=== PATIENT | male | born 1945 | race Caucasian/White ===

== ENCOUNTER → 2017-07-21 | Outpatient (CLI) | payer OTHER ==
[2017-07-21 13:05] LABS: ALT/SGPT 40 U/L (12-78); AST/SGOT 30 U/L (15-37); BLOOD UREA NITROGEN 20 mg/dl (7-18); BUN/CREATININE RATIO 11.3 (10-20); CALCIUM 9.6 mg/dl (8.5-10.1); CARBON DIOXIDE 21 mmol/L (21-32); CHLORIDE 107 mmol/L (98-107); CREATININE 1.74 mg/dl (0.60-1.40); GLUCOSE 165 mg/dl (70-99); POTASSIUM 4.3 mmol/L (3.5-5.1); SODIUM 140 mmol/L (136-145)
[2017-07-21 13:08] LABS: ALKALINE PHOSPHATASE 77 U/L (45-117)
[2017-07-21 13:18] LABS: BASO % 0.6 %; BASO ABS # 0.05 K/uL (0-0.2); COMPLETE YES; EOS % 3.1 %; HEMATOCRIT 37.3 % (42-52); IG% 0.3 %; LYMPH % 30.8 %; LYMPH ABS # 2.46 K/uL (1.2-3.4); MEAN CELL VOLUME 92.6 fL (80-100); MEAN CORPUSCULAR HEMOGLOBIN 30.5 pg (25-34); MEAN PLATELET VOLUME 11.8 fL (7.4-10.4); MONO % 9.3 %; NEUT % 55.9 %; PLATELET COUNT 186 K/uL (130-400); RED BLOOD COUNT 4.03 M/uL (4.7-6.1); WHITE BLOOD COUNT 7.99 K/uL (4.8-10.8)
[2017-07-21 13:32] LABS: CHOLESTEROL/HDL RATIO 2.8; THYROID STIMULATING HORMONE 2.95 uIu/ml (0.300-4.500)
[2017-07-21 14:07] LABS: ESTIMATED AVERAGE GLUCOSE 166 mg/dl; HA1C FLAG Normal (Normal)
== END | disposition home or self-care (01) ==
LOC: C.LABMFLN 08:39
PROVIDERS: ATTEND Physician Assistant
DX: E11.9 Type 2 diabetes mellitus without complications (principal); E78.5 Hyperlipidemia, unspecified; I10 Essential (primary) hypertension

== ENCOUNTER → 2017-11-18 | Outpatient (CLI) | payer OTHER ==
[2017-11-18 13:08] LABS: HEMOGLOBIN A1C 11.9 % (4.5-5.6)
[2017-11-18 13:26] LABS: ALBUMIN 3.3 gm/dl (3.4-5.0); ALT/SGPT 39 U/L (12-78); BLOOD UREA NITROGEN 33 mg/dl (7-18); CALCIUM 9.5 mg/dl (8.5-10.1); CARBON DIOXIDE 21 mmol/L (21-32); CHOLESTEROL 108 mg/dl (0-200); CREATININE 2.05 mg/dl (0.60-1.40); GLUCOSE 220 mg/dl (70-99); POTASSIUM 4.3 mmol/L (3.5-5.1); SODIUM 136 mmol/L (136-145)
[2017-11-18 13:29] LABS: ALKALINE PHOSPHATASE 111 U/L (45-117); AST/SGOT 24 U/L (15-37); LDL CHOLESTEROL CALCULATED 43 mg/dl; TOTAL PROTEIN 7.3 gm/dl (6.4-8.2)
== END | disposition home or self-care (01) ==
LOC: C.LABMFLN 08:48
PROVIDERS: ATTEND Family Medicine
DX: E11.9 Type 2 diabetes mellitus without complications (principal); E78.5 Hyperlipidemia, unspecified; I10 Essential (primary) hypertension

== ENCOUNTER → 2018-01-29 | Outpatient (CLI) | payer OTHER ==
[2018-01-29 17:57] LABS: HEMATOCRIT 40.6 % (42-52); HEMOGLOBIN 13.2 g/dL (14.0-18.0); MEAN CELL VOLUME 89.6 fL (80-100); MEAN CORPUSCULAR HEMOGLOBIN 29.1 pg (25-34); MEAN CORPUSCULAR HGB CONC 32.5 g/dl (32-36); MEAN PLATELET VOLUME 11.7 fL (7.4-10.4); PLATELET COUNT 217 K/uL (130-400); RED CELL DISTRIBUTION WIDTH CV 13.5 % (11.5-14.5); RED CELL DISTRIBUTION WIDTH SD 44.2 fL (36.4-46.3); WHITE BLOOD COUNT 8.09 K/uL (4.8-10.8)
[2018-01-29 18:12] LABS: ALBUMIN 3.5 gm/dl (3.4-5.0); BLOOD UREA NITROGEN 31 mg/dl (7-18); CARBON DIOXIDE 26 mmol/L (21-32); CREATININE 1.88 mg/dl (0.60-1.40); GLUCOSE 106 mg/dl (70-99); PHOSPHORUS 4.9 mg/dl (2.5-4.9); POTASSIUM 4.2 mmol/L (3.5-5.1); SODIUM 140 mmol/L (136-145)
== END | disposition home or self-care (01) ==
LOC: C.LABMFLN 15:15
PROVIDERS: ATTEND Internal Medicine Nephrology
DX: N17.9 Acute kidney failure, unspecified (principal); E11.29 Type 2 diabetes mellitus with other diabetic kidney complication

== ENCOUNTER → 2018-02-04 | Outpatient (CLI) | payer OTHER ==
--- NOTE | 2018-02-04 14:44 | DIAGNOSTIC IMAGING REPORT ---
ADDENDUM 1. Incidental note is made of a potential 3 x 2.5 cm pancreatic head lesion. 2. There is also a complex 8 x 5 cm complex lesion of the spleen, with the possibility of an additional similar but smaller lesion posteriorly measuring 2.5 cm. 3. A multi phase CT evaluation of the abdomen/pelvis is suggested as follow-up. Electronically signed by: Forrest Hagen M.D. 02/04/2018 2:58 PM Dictated Date/Time: 02/04/2018 2:56 PM ORIGINAL REPORT (RENAL)RETROPERITON COMP HISTORY: Renal insufficiency N17.9 ROMMEL (acute kidney injury)[id number] COMPARISON: None. FINDINGS: Right kidney: Maximum dimension 10.6 cm. No evidence for hydronephrosis. 1 cm mid pole cyst. Mild renal cortical scarring. Normal corticomedullary differentiation and cortical thickness. Left kidney: Maximum dimension 11.6 cm. 1.5 cm exophytic cyst. No evidence for hydronephrosis. Mild cortical scarring. Normal corticomedullary differentiation and cortical thickness. Bladder: No bladder wall thickening. The bilateral ureteral jets were identified. IMPRESSION: 1. No evidence for hydronephrosis. 2. Small bilateral renal cysts. 3. Mild bilateral renal cortical scarring. The above report was generated using voice recognition software. It may contain grammatical, syntax or spelling errors. Electronically signed by: Forrest Hagen M.D. 02/04/2018 2:43 PM Dictated Date/Time: 02/04/2018 2:42 PM
== END | disposition home or self-care (01) ==
LOC: C.ULTR 13:52
PROVIDERS: ATTEND Internal Medicine Nephrology
DX: N17.9 Acute kidney failure, unspecified (principal)

== ENCOUNTER → 2018-05-03 | Outpatient (CLI) | payer OTHER ==
[~2018-05-03] MED LIST: ASPI81TA28 PO; ATR25 PO; ECRCR EXT; ERGO500037 PO; INSU1INJ32 SC; NVLGI/PEN SC; ROSU20TA PO; TERA5CAP PO
[2018-05-03 13:16] LABS: BASO % 0.8 %; BASO ABS # 0.07 K/uL (0-0.2); EOS ABS # 0.18 K/uL (0-0.5); HEMATOCRIT 40.8 % (42-52); HEMOGLOBIN 13.6 g/dL (14.0-18.0); IG# 0.04 K/uL (0.00-0.02); LYMPH ABS # 1.63 K/uL (1.2-3.4); MEAN CELL VOLUME 87.7 fL (80-100); MEAN CORPUSCULAR HEMOGLOBIN 29.2 pg (25-34); MEAN CORPUSCULAR HGB CONC 33.3 g/dl (32-36); MEAN PLATELET VOLUME 11.4 fL (7.4-10.4); MONO ABS # 0.82 K/uL (0.11-0.59); NEUT % 69.8 %; NEUT ABS # 6.34 K/uL (1.4-6.5); PLATELET COUNT 205 K/uL (130-400); RED CELL DISTRIBUTION WIDTH CV 14.4 % (11.5-14.5); RED CELL DISTRIBUTION WIDTH SD 46.5 fL (36.4-46.3); WHITE BLOOD COUNT 9.08 K/uL (4.8-10.8)
[2018-05-03 13:18] LABS: ALBUMIN 3.6 gm/dl (3.4-5.0); ALKALINE PHOSPHATASE 118 U/L (45-117); ALT/SGPT 33 U/L (12-78); AST/SGOT 42 U/L (15-37); BLOOD UREA NITROGEN 30 mg/dl (7-18); CALCIUM 10.8 mg/dl (8.5-10.1); CARBON DIOXIDE 25 mmol/L (21-32); CREATININE 1.98 mg/dl (0.60-1.40); GLUCOSE 194 mg/dl (70-99); POTASSIUM 3.8 mmol/L (3.5-5.1); SODIUM 137 mmol/L (136-145); TOTAL PROTEIN 7.6 gm/dl (6.4-8.2)
== END | disposition home or self-care (01) ==
LOC: C.LABMFLN 09:29
PROVIDERS: ATTEND Internal Medicine Hematology & Oncology
DX: C83.33 Diffuse large B-cell lymphoma, intra-abdominal lymph nodes (principal)

== ENCOUNTER → 2018-05-12 | Day surgery (SDC) | payer OTHER ==
[2018-05-07 15:31] VITALS: BMI 31.0
[~2018-05-12] VITALS: Ht 182.9 cm; Wt 104.5 kg
[~2018-05-12] MED LIST changes: +ATROPINE SULFATE 0.1 MG/ML 5ML SYR IV PRN; +BUPIVACAINE 0.5 % 5 MG/1 ML PF 10ML VIAL ONE; +CEFAZOLIN 2000MG IV PUSH 15 ML IV SCH; -ERGO500037 PO; +EpHEDrine SULFATE INJ 50 MG/ML AMP IV PRN; +FENTANYL CITRATE INJ 50 MCG/1 ML 2 ML VIAL ONE; +HEPARIN SOD (PORCINE) 1000 UNIT/ML 10 ML VIAL ONE; +LIDOCAINE HCL 2% 2 ML VIAL (20MG/ML) ONE; +LIDOCAINE/EPINEPHRINE 1% 20 ML VIAL ONE; +MIDAZOLAM HCL 1 MG/ML 2ML VIAL ONE; +ONDANSETRON INJ 2 MG/ML 2 ML VIAL IV PRN; +OXYCODONE/ACETAMINOPHEN 5-325 TAB PO PRN; +PROPOFOL IV EMULSION 10 MG/ML 20 ML VIAL ONE; +SODIUM CHLORIDE 0.9% 1000ML 1,000 ML IV SCH
[2018-05-12 05:39] VITALS: BP 165/79; PULSE 82; TEMP 36.7; O2SAT 97; Ht 182.9 cm; Wt 104.5 kg
--- NOTE | 2018-05-12 06:58 | History & Physical Bridge Note ---
H&P Re-Evaluation Bridge Note: I have examined the patient, reviewed the History & Physical and in the interval since the performance of the History & Physical I have noted the following changes of clinical significance: No changes noted
--- NOTE | 2018-05-12 08:02 | [facility] Post Operative Brief Note ---
Immediate Operative Summary Operative Date May 12, 2018. Pre-Operative Diagnosis Non-Hodgkin's Lymphoma, need for chemo Post-Operative Diagnosis Same as preoperative Procedure(s) Performed Insertion of Mediport with Fluoroscopy, Left Internal Jugular vein Surgeon Dr. Soto Women Specialist Surgeon(s) Kanwal Veliz PA-C Estimated Blood Loss 4ml Findings Consistent with Post-Op Diagnosis Left IJV port placement with US guidance and fluoroscopy Specimens None Drains None Anesthesia Type MAC Complication(s) none Disposition Accompanied Pt To Recover: no Disposition: Recovery Room / PACU
--- NOTE | 2018-05-12 08:03 | [facility] Operative Report ---
Operative Report Operative Date May 12, 2018. Pre-Operative Diagnosis Non-Hodgkin's Lymphoma, need for chemo Post-Operative Diagnosis Same Procedure(s) Performed Left internal jugular vein port placement using real-time ultrasound guidance and fluoroscopy Surgeon Dr. Soto Fur Dressing Supervisor Surgeon(s) Kanwal Veliz PA-C Estimated Blood Loss 4ml Findings Left internal jugular vein accessed using real-time ultrasound guidance. Fluoroscopy confirmed placement of port in SVC. Draws and flushes easily at conclusion of case. Specimens None Drains None Anesthesia MAC/local Complication(s) None Disposition Recovery Room / PACU Indications 72-year-old male with non-Hodgkin's lymphoma and need for long-term IV access for chemotherapy, plan for port placement. The risks of the procedure were discussed, all questions were answered, and the patient agreed to proceed with surgery as planned. Description of Procedure The patient was properly identified, consented, and taken to the operating room where he was placed in the supine position with both arms tucked and a shoulder roll placed vertically. Monitored anesthesia care was induced. SCDs and a safety belt were placed. Preoperative antibiotics were administered. The patient's chest and neck was prepped and draped in the standard sterile fashion. Surgical timeout was performed and all parties were in agreement that this was the correct patient and procedure to be performed and we continued as planned. The patient was placed in Trendelenburg position. Local anesthetic was injected along the skin incision. Using real-time ultrasound guidance the left internal jugular vein was accessed using the access needle. The wire was placed and the needle was removed. Fluoroscopy confirmed placement into the internal jugular vein extending into the superior vena cava. A transverse skin incision was made in the left chest and a pocket was created for the port. A subcutaneous tunnel was created and the catheter was brought from the neck incision into the chest incision. The dilator and peel-away sheath were inserted over the wire. The catheter was then inserted through the peel-away sheath and fluoroscopy confirmed placement into the superior vena cava. The catheter was cut and attached to the port. The port was secured into place with 3-0 Prolene sutures. A final x-ray revealed good placement of the port. The wound was irrigated and hemostasis was confirmed. The skin was closed with interrupted 3-0 Vicryl deep dermal sutures, followed by 4-0 Monocryl running subcuticular suture. Dermabond was placed over the wound. The port was accessed and leelee blood easily and flushed easily. It was flushed with heparinized saline. The patient taken to the PACU where he recovered without apparent incident. All sponge, instrument and needle counts were correct at the conclusion of the procedure. The patient tolerated the procedure well. The physician's escrow assistant was present and scrubbed for the entirety of the case , and was essential in positioning the patient, prepping and draping, retraction and exposure, placement of the port, closure of the wounds, and placement of dressings. I attest to the content of the Intraoperative Record and any orders documented therein. Any exceptions are noted below.
--- NOTE | 2018-05-12 08:19 | Discharge Instructions ---
Discharge Instructions Date of Service May 12, 2018. Admission Reason for Admission: Non-Hodgkkin's Lymphoma, Diabetes Discharge Discharge Diagnosis / Problem: Non-Hodgkin's Lymphoma, Diabetes Discharge Goals Goal(s): Decrease discomfort, Improve function Activity Recommendations Activity Limitations: as noted below Lifting Limitations: gradually increase as tolerated Exercise/Sports Limitations: gradually increase as tolerated May Resume Sexual Activity: when tolerated Shower/Bathe: tomorrow Driving or Machine Use: resume 1 day after discharge . Instructions / Follow-Up Instructions / Follow-Up Your port is ready for access now. You have surgical glue, Dermabond, over your incisions. You may shower tomorrow , but please do not soak or scrub your incisions. For pain you can take Tylenol- 2 regular strength Tylenol every 4-6 hrs as needed. Do not exceed more than 10 tablets in a 24 hr period. Please follow-up with Dr. Soto in the [facility] in 1-2 weeks for incision check. Please call the General Surgery Clinic at [phone] with any questions or concerns. Current Hospital Diet Patient's current hospital diet: Discharge Diet Recommended Diet: Regular Diet Procedures Procedures Performed: Insertion of Mediport with Fluoroscopy, Left Internal Jugular vein Pending Studies Studies pending at discharge: no Medical Emergencies . Who to Call and When: Medical Emergencies: If at any time you feel your situation is an emergency, please call 911 immediately. . Non-Emergent Contact Non-Emergency issues call your: Primary Care Provider, Surgeon Call Non-Emergent contact if: temperature is above 101.5, your pain is not controlled, wound has increased drainage, wound has increased redness . "Provider Documentation" section prepared by Kanwal Veliz. .
--- NOTE | 2018-05-12 08:38 | Anesthesiology Progress Note ---
Anesthesia Post Op Note Date & Time May 12, 2018 at 08:37 Vital Signs Pain Intensity: 0 Vital Signs Past 12 Hours Date Time Temp Pulse Resp B/P (MAP) Pulse Ox O2 Delivery O2 Flow Rate FiO2 05/12/18 08:31 142/77 05/12/18 08:29 135/63 05/12/18 08:28 76 15 05/12/18 08:28 76 15 96 05/12/18 08:27 176/47 05/12/18 08:23 77 17 05/12/18 08:23 84 17 90 05/12/18 08:21 150/82 05/12/18 08:18 73 21 05/12/18 08:18 73 21 97 05/12/18 08:16 151/86 05/12/18 08:13 74 05/12/18 08:13 36.0 74 18 154/88 97 Oxymask 10 05/12/18 08:13 74 154/88 94 05/12/18 05:39 36.7 82 18 165/79 (107) 97 Room Air Notes Mental Status: alert / awake / arousable, participated in evaluation Pt Amnestic to Procedure: Yes Nausea / Vomiting: adequately controlled Pain: adequately controlled Airway Patency, RR, SpO2: stable & adequate BP & HR: stable & adequate Hydration State: stable & adequate Anesthetic Complications: no major complications apparent
--- NOTE | 2018-05-12 08:38 | DIAGNOSTIC IMAGING REPORT ---
CHEST ONE VIEW PORTABLE HISTORY: s/p Port placement, Pt in PACU COMPARISON: Chest 03/22/2018. FINDINGS: Interval placement of a left sided Port-A-Cath with the tip terminating in the expected location of the distal SVC. No pneumothorax. Trace left pleural effusion, unchanged. The heart remains mildly enlarged. There are low lung volumes. No new focal lung consolidations to suggest pneumonia. No evidence for pulmonary edema. IMPRESSION: 1. Left-sided Port-A-Cath terminates in the distal SVC. 2. No pneumothorax. 3. Trace left pleural effusion, unchanged. Electronically signed by: Cuba Graves M.D. 05/12/2018 8:37 AM Dictated Date/Time: 05/12/2018 8:35 AM
[2018-05-12 08:55] VITALS: BP 147/73; PULSE 70; TEMP 36.4; O2SAT 98
[2018-05-12 09:25] VITALS: BP 136/74; PULSE 76; TEMP 36.4; O2SAT 98
--- NOTE | 2018-05-12 09:45 | [facility] Operative Report ---
Operative Report Operative Date May 12, 2018. Pre-Operative Diagnosis Non-Hodgkin's Lymphoma, need for chemo Surgeon Dr. Soto Findings Real-time ultrasound guidance was utilized and interpreted by the surgeon to access the left internal jugular vein. Fluoroscopy was used and interpreted by the surgeon throughout the case for placement of the catheter. A total of 14 seconds fluoroscopy time was utilized. I attest to the content of the Intraoperative Record and any orders documented therein. Any exceptions are noted below.
== END | disposition home or self-care (01) ==
LOC: C.ACU 04:55
PROVIDERS: ATTEND Surgery
DX: C85.90 Non-Hodgkin lymphoma, unspecified, unspecified site (principal); E11.9 Type 2 diabetes mellitus without complications; F32.9 Major depressive disorder, single episode, unspecified; N18.9 Chronic kidney disease, unspecified; E78.5 Hyperlipidemia, unspecified; E55.9 Vitamin D deficiency, unspecified; E66.9 Obesity, unspecified; Z68.31 Body mass index [BMI] 31.0-31.9, adult; Z88.2 Allergy status to sulfonamides; Z85.828 Personal history of other malignant neoplasm of skin; Z86.010 Personal history of colon polyps; Z79.82 Long term (current) use of aspirin

== ENCOUNTER → 2018-05-12 | Outpatient (CLI) | payer OTHER ==
[~2018-05-12] MED LIST changes: -ATROPINE SULFATE 0.1 MG/ML 5ML SYR IV PRN; -BUPIVACAINE 0.5 % 5 MG/1 ML PF 10ML VIAL ONE; -CEFAZOLIN 2000MG IV PUSH 15 ML IV SCH; -EpHEDrine SULFATE INJ 50 MG/ML AMP IV PRN; -FENTANYL CITRATE INJ 50 MCG/1 ML 2 ML VIAL ONE; -HEPARIN SOD (PORCINE) 1000 UNIT/ML 10 ML VIAL ONE; -LIDOCAINE HCL 2% 2 ML VIAL (20MG/ML) ONE; -LIDOCAINE/EPINEPHRINE 1% 20 ML VIAL ONE; -MIDAZOLAM HCL 1 MG/ML 2ML VIAL ONE; -ONDANSETRON INJ 2 MG/ML 2 ML VIAL IV PRN; -OXYCODONE/ACETAMINOPHEN 5-325 TAB PO PRN; +PERFLUTREN LIPID MICROSPHERE (DEFINITY) IV ONE; -PROPOFOL IV EMULSION 10 MG/ML 20 ML VIAL ONE; -SODIUM CHLORIDE 0.9% 1000ML 1,000 ML IV SCH
--- NOTE | 2018-05-12 15:26 | ECHOCARDIOGRAM REPORT ---
*NOTICE TO RECEIVING [employer] This information is strictly Confidential and protected under [place] law. [place] law prohibits you from making any further disclosure of this information unless further disclosure is expressly permitted by the written consent of the person to whom it pertains or is authorized by law. A general authorization for the release of medical or other information is not sufficient for this purpose. Hospital accepts no responsibility if the information is made available to any other person, INCLUDING THE PATIENT. Interpretation Summary * Name: KAREN GOSS Study Date: 05/12/2018 11:18 AM * Patient Location: [facility] HR: 81 * : 1945 (M/d/yyyy) Gender: Male Height: 72 in * Age: 72 yrs Ethnicity: CA Weight: 230 lb * Ordering Physician: Justice Saenz * Referring Physician: Justice Saenz * Performed By: Mishel Bernabe RDCS * * Reason For Study: NON HODGKINS LYMPHOMA * BSA: 2.3 m2 * -- Conclusions -- * Left ventricular systolic function is normal. * Grade I diastolic dysfunction, (abnormal relaxation pattern). * Aortic valve sclerosis mild, without significant aortic valvular stenosis. Procedure Details * A complete two-dimensional transthoracic echocardiogram was performed (2D, M-mode, Doppler and color flow Doppler). * The study was technically difficult. * There were technical limitations due to patient'spoor positioning * A contrast injection of Definity was performed to improve assessment of LV function. * Contrast was injected into an intravenous site in the left arm. * One vial of Definity ultrasound contrast was diluted in normal saline to a total volume of 10 ml. A total of '2.5' ml of solution was administered during imaging. * Lot # [id number] of Definity utilized for procedure. * Expiration date 04/15. * The attending nurse who injected the contrast agent was DON ARORA RN. Left Ventricle * The left ventricle is grossly normal size. * There is normal left ventricular wall thickness. * Ejection Fraction = 60-65%. * Left ventricular systolic function is normal. * Grade I diastolic dysfunction, (abnormal relaxation pattern). * The left ventricular wall motion is normal. Right Ventricle * The right ventricle is not well visualized. * The right ventricular systolic function is reduced as assessed by tricuspid annular plane systolic excursion (TAPSE) (TAPSE <1.6 cm). Atria * The left atrial size is normal. * Right atrial size is normal. Mitral Valve * The mitral valve is grossly normal. * Significant mitral regurgitation is absent. Tricuspid Valve * The tricuspid valve is not well visualized, but is grossly normal. * Significant tricuspid regurgitation is absent. Aortic Valve * Aortic valve sclerosis mild, without significant aortic valvular stenosis. * No hemodynamically significant valvular aortic stenosis. * There is no significant aortic regurgitation. Pulmonic Valve * The pulmonic valve is not well visualized. Pericardium/Pleural * There is no pericardial effusion. MMode 2D Measurements and Calculations IVSd 1.1 cm IVSs 1.8 cm LVIDd 5.4 cm LVIDs 3.5 cm LVPWd 1.2 cm LVPWs 1.7 cm IVS/LVPW 0.92 FS 34.8 % EDV(Teich) 139.3 ml ESV(Teich) 50.8 ml EF(Teich) 63.5 % EDV(cubed) 154.6 ml ESV(cubed) 42.8 ml EF(cubed) 72.3 % % IVS thick 67.1 % % LVPW thick 46.0 % LV mass(C)d 236.0 grams LV mass(C)dI 104.4 grams/m\S\2 LV mass(C)s 246.9 grams LV mass(C)sI 109.2 grams/m\S\2 SV(Teich) 88.5 ml SI(Teich) 39.2 ml/m\S\2 SV(cubed) 111.8 ml SI(cubed) 49.4 ml/m\S\2 ACS 0.62 cm asc Aorta Diam 3.4 cm LVOT diam 2.2 cm LVOT area 3.8 cm\S\2 LVAd ap4 29.2 cm\S\2 LVLd ap4 8.4 cm EDV(MOD-sp4) 85.4 ml EDV(sp4-el) 86.0 ml LVAs ap4 13.2 cm\S\2 LVLs ap4 6.8 cm ESV(MOD-sp4) 21.0 ml ESV(sp4-el) 21.7 ml EF(MOD-sp4) 75.4 % EF(sp4-el) 74.8 % LVAd ap2 31.0 cm\S\2 LVLd ap2 8.3 cm EDV(MOD-sp2) 95.2 ml EDV(sp2-el) 98.6 ml LVAs ap2 14.2 cm\S\2 LVLs ap2 6.8 cm ESV(MOD-sp2) 24.4 ml ESV(sp2-el) 25.1 ml EF(MOD-sp2) 74.3 % EF(sp2-el) 74.5 % LVLd %diff -1.45 % EDV(MOD-bp) 90.8 ml LVLs %diff 0.63 % ESV(MOD-bp) 22.6 ml EF(MOD-bp) 75.1 % SV(MOD-sp4) 64.4 ml SI(MOD-sp4) 28.5 ml/m\S\2 SV(MOD-sp2) 70.8 ml SI(MOD-sp2) 31.3 ml/m\S\2 SV(MOD-bp) 68.2 ml SI(MOD-bp) 30.2 ml/m\S\2 SV(sp4-el) 64.3 ml SI(sp4-el) 28.4 ml/m\S\2 SV(sp2-el) 73.5 ml SI(sp2-el) 32.5 ml/m\S\2 Doppler Measurements and Calculations MV E max yair 82.3 cm/sec MV A max yair 95.6 cm/sec MV E/A 0.86 MV dec time 0.32 sec Ao V2 max 104.4 cm/sec Ao max PG 4.4 mmHg Ao max PG (full) 0.68 mmHg MAKEDA(V,A) 3.5 cm\S\2 MAKEDA(V,D) 3.5 cm\S\2 LV V1 max PG 3.7 mmHg LV V1 max 95.9 cm/sec PA V2 max 132.7 cm/sec PA max PG 7.0 mmHg
== END | disposition home or self-care (01) ==
LOC: C.CPL 11:16
PROVIDERS: ATTEND Internal Medicine Hematology & Oncology
DX: C83.33 Diffuse large B-cell lymphoma, intra-abdominal lymph nodes (principal)

== ENCOUNTER → 2018-05-17 | Outpatient (CLI) | payer OTHER ==
[~2018-05-17] MED LIST changes: -PERFLUTREN LIPID MICROSPHERE (DEFINITY) IV ONE
--- NOTE | 2018-05-17 13:09 | DIAGNOSTIC IMAGING REPORT ---
PET/CT CLINICAL HISTORY: Lymphoma. COMPARISON STUDY: CT scan of the chest dated 03/24/2018. A CT scan of the abdomen and pelvis dated 03/22/2018. TECHNIQUE: One hour following the IV administration of 9.80 mCi of F-18 FDG, PET/CT examination was performed from the orbital meatal line through the bony pelvis. Noncontrast CT is performed for the purposes of anatomic correlation and attenuation correction. Note that this does not reflect a diagnostic CT examination. Images were reviewed on a separate [employer] independent workstation. Fused images were obtained. Standard uptake values reported are maximum values within the region of interest expressed in gm/mL. FINDINGS: PET FINDINGS: Head and neck: There is expected physiologic activity within the visualized brain parenchyma at the skull base and the salivary glands. There are no pathologically enlarged or FDG avid cervical lymph nodes identified. Thorax: Evaluation of the thorax demonstrates expected physiologic myocardial activity. A high prevascular lymph node on image #69 measures 1.6 x 1.2 cm and demonstrates a maximum SUV of 22.6. This node is new from 03/24/2018. No additional pathologically enlarged or FDG avid mediastinal or hilar lymph nodes are seen. Abdomen and pelvis: There is expected activity within the liver, spleen, kidneys, renal collecting system, and bladder. Low-level bowel activity is likely within physical limits. The spleen is enlarged, measuring 16.7 cm in length. There is significant abnormal FDG localization throughout the spleen which demonstrates a maximum SUV of 38.4. There are numerous enlarged and FDG avid intraperitoneal lymph nodes. A mackenzie aggregate seen just below the diaphragmatic hiatus on image #129 measures 5.5 x 4.3 cm demonstrates a maximum SUV of 37.7. A left para-aortic node on image #145 measures 5.8 x 4.2 cm demonstrates a maximum SUV of 34.3. There are additional enlarged and FDG avid lymph nodes in the minnie hepatis/portacaval region, left retrocrural space, as well as the iliac chain. A left external iliac chain node on image #208 measures 2.8 x 1.8 cm and demonstrates a maximum SUV of 30.0. Unenhanced CT images: The visualized brain parenchyma the skull base is normal in appearance. The bony orbits are intact. Orbital contents are normal in appearance noting bilateral ocular lens implants. The visualized paranasal sinuses and mastoid air cells are clear. The salivary and thyroid glands are normal as imaged. A left internal jugular central venous infusion port is in place. There is mild atherosclerotic calcification of the thoracic aorta which is normal in caliber. The heart is mildly enlarged and there is trace pericardial fluid. The coronary arteries are densely calcified. A tiny hiatal hernia is observed. There is a small left pleural effusion with associated left basilar atelectasis. The lungs are otherwise clear. The unenhanced liver is grossly unremarkable. There are calcified gallstones. The unenhanced pancreas and adrenal glands are grossly normal. Kidneys demonstrate cortical atrophy and are without hydronephrosis. The abdominal aorta is normal in caliber noting advanced atherosclerotic calcification. There is a fat-containing umbilical hernia. No bowel obstruction is identified. There is mild colonic diverticulosis without CT evidence of acute diverticulitis. No peritoneal free air or abdominal ascites is seen. The prostate gland is enlarged and heterogeneous. The bladder wall is thickened and trabeculated indicating chronic outlet obstruction. A large bladder diverticulum seen on the left which contains small calculi. The skeletal structures are osteopenic. Degenerative changes noted throughout the spine. No lytic or blastic lesion is identified. IMPRESSION: 1. There has been overall progression of disease as compared to studies dated February of 2018. 2. There is a new high left prevascular lymph node which is markedly FDG avid. 3. The spleen is enlarged, markedly FDG avid, and has continued to increase in size. 4. Markedly FDG avid retroperitoneal, upper abdominal, and iliac chain adenopathy has progressed from previous. 5. There is a small left pleural effusion, increased in size from 03/24/2018. 6. Cholelithiasis. 7. There is a large bladder diverticulum which contains small stones. 8. Additional findings as above. Electronically signed by: Wally Le M.D. 05/17/2018 1:07 PM Dictated Date/Time: 05/17/2018 12:40 PM
== END | disposition home or self-care (01) ==
LOC: C.PET 08:05
PROVIDERS: ATTEND Internal Medicine Hematology & Oncology
DX: C83.33 Diffuse large B-cell lymphoma, intra-abdominal lymph nodes (principal)

== ENCOUNTER → 2018-05-19 | Outpatient (CLI) | payer OTHER ==
[2018-05-19 16:03] LABS: BASO % 0.6 %; BASO ABS # 0.06 K/uL (0-0.2); EOS % 1.8 %; EOS ABS # 0.18 K/uL (0-0.5); HEMATOCRIT 39.2 % (42-52); IG# 0.02 K/uL (0.00-0.02); LYMPH % 16.5 %; LYMPH ABS # 1.65 K/uL (1.2-3.4); MEAN CELL VOLUME 87.3 fL (80-100); MEAN CORPUSCULAR HGB CONC 33.2 g/dl (32-36); MONO % 10.8 %; MONO ABS # 1.08 K/uL (0.11-0.59); NEUT % 70.1 %; NEUT ABS # 7.01 K/uL (1.4-6.5); PLATELET COUNT 182 K/uL (130-400); RED CELL DISTRIBUTION WIDTH CV 14.7 % (11.5-14.5); RED CELL DISTRIBUTION WIDTH SD 46.6 fL (36.4-46.3)
[2018-05-19 16:25] LABS: ALBUMIN 3.2 gm/dl (3.4-5.0); ALKALINE PHOSPHATASE 127 U/L (45-117); ALT/SGPT 31 U/L (12-78); AST/SGOT 57 U/L (15-37); BLOOD UREA NITROGEN 24 mg/dl (7-18); CALCIUM 11.1 mg/dl (8.5-10.1); CARBON DIOXIDE 26 mmol/L (21-32); CREATININE 1.73 mg/dl (0.60-1.40); GLUCOSE 59 mg/dl (70-99); POTASSIUM 3.6 mmol/L (3.5-5.1); SODIUM 141 mmol/L (136-145); TOTAL PROTEIN 7.3 gm/dl (6.4-8.2)
== END | disposition home or self-care (01) ==
LOC: C.LABSPEC 14:58
PROVIDERS: ATTEND Internal Medicine Hematology & Oncology
DX: C83.33 Diffuse large B-cell lymphoma, intra-abdominal lymph nodes (principal)